=== PATIENT | female | born 1955 ===

== ENCOUNTER → 2020-10-14 14:49 | Outpatient (CLI) | payer OTHER ==
[~2020-10-14 14:49] MED LIST: AVANDIA4 MG PO; JANUVIA100 MG PO; LEVAQUIN750 MG PO; SYNTHROID75 MCG PO; TRICOR145 MG PO; ZANTAC 2525 MG PO; ZETIA10 MG PO
== END | disposition home or self-care (01) ==
LOC: LAB 14:34
PROVIDERS: ATTEND Internal Medicine Pulmonary Disease
DX: U07.1 COVID-19 (principal); R05 Cough; R06.02 Shortness of breath; R50.9 Fever, unspecified